=== PATIENT | male | born 1960 | race African-American/Black ===

== ENCOUNTER 2019-09-27 14:08 | Emergency (ER) | payer SELFPAY ==
[2019-09-27 15:36] VITALS: BP 149/89
--- NOTE | 2019-09-27 16:16 | RAD ---
Exam: CT head INDICATION: Headache TECHNIQUE: Sequential axial images through the head were obtained without the administration of IV contrast. Comparisons: None FINDINGS: No focal parenchymal lesion or hemorrhage is identified. There is no midline shift or sulcal effacement. No acute vascular territory infarction is identified. Wolf-white distinction is preserved. The ventricular system is within normal limits without compression hydrocephalus. The basal cisterns are well maintained. The visualized portions of the paranasal sinuses and mastoid air cells are well-pneumatized. No acute fractures. IMPRESSION: No acute intracranial abnormality. Exposure: One or more of the following in the visualized dose reduction techniques were utilized for this examination: 1. Automated exposure control 2. Adjustment of the MA and/or KV according to patient size Use of iterative of reconstructive technique Electronically signed by: Jennifer Villasenor MD (09/27/2019 4:13 PM) [facility]
--- NOTE | 2019-09-27 16:37 | PHYS DOC ---
Past Medical History Alcohol Use: Occasionally Adult General Chief Complaint Chief Complaint: EYE PROBLEMS HPI HPI Patient is a 58 year old male with no significant medical history who presents to the ED today complaining of redness on the right side of the right eye that began 3-4 days ago. Patient reports he has been under a lot of stress yelling and screaming multiple times to the significant other, after one of the screaming episodes he noted he raptured one of his blood vessels to the right eye. He reports occasional blurry vision which is not present right now. He reports mild intermittent right-sided headaches since the yelling and screaming began. Patient denies any previous history of high blood pressure. Denies any drainage. Denies any trauma Review of Systems Review of Systems Constitutional: Denies fever or chills [] Eyes: Reports redness to the right lateral eye. Denies change in visual acuity, eye pain [] HENT: Denies nasal congestion or sore throat [] Respiratory: Denies cough or shortness of breath [] Cardiovascular: No additional information not addressed in HPI [] GI: Denies abdominal pain, nausea, vomiting, bloody stools or diarrhea [] : Denies dysuria or hematuria [] Musculoskeletal: Denies back pain or joint pain [] Integument: Denies rash or skin lesions [] Neurologic: Denies headache, focal weakness or sensory changes [] All other systems were reviewed and found to be within normal limits, except as documented in this note. Allergies Allergies Allergies Coded Allergies Type Severity Reaction Last Updated Verified No Known Drug Allergies 09/27/19 No Physical Exam Physical Exam Constitutional: Well developed, well nourished, no acute distress, non-toxic appearance. [] HENT: Normocephalic, atraumatic, bilateral external ears normal, oropharynx m oist, no oral exudates, nose normal. [] Eyes: PERRLA, EOMI, subconjunctival hemorrhage noted on the right lateral eye, no discharge. [] Neck: Normal range of motion, no tenderness, supple, no stridor. [] Cardiovascular:Heart rate regular rhythm, no murmur [] Lungs & Thorax: Bilateral breath sounds clear to auscultation [] Abdomen: Bowel sounds normal, soft, no tenderness, no masses, no pulsatile rupal s. [] Skin: Warm, dry, no erythema, no rash. [] Back: No tenderness, no CVA tenderness. [] Extremities: No tenderness, no cyanosis, no clubbing, ROM intact, no edema. [] Neurologic: Alert and oriented X 3, normal motor function, normal sensory function, no focal deficits noted. Cranial nerves II-XII intact. Psychologic: Affect normal, judgement normal, mood normal. [] Current Patient Data Vital Signs Vital Signs Date Time Temp Pulse Resp B/P (MAP) Pulse Ox O2 Delivery O2 Flow Rate FiO2 09/27/19 15:36 99.0 71 16 149/89 (109) 97 Room Air 99.0 EKG EKG [] Radiology/Procedures Radiology/Procedures [] Course & Med Decision Making Course & Med Decision Making Pertinent Labs and Imaging studies reviewed. (See chart for details) This is a 58-year-old male patient with no significant medical history who presents to the ED today complaining of ruptured blood vessels on the right lateral eye that he noted 3 or 4 days ago after yelling/screaming much with the significant other. Also complaining of headache since then. Blood pressures in the 140s over 80s. CT of the head is negative. Visual acuity 20/30 right eye, left eye and both eyes. Discussed with patient stress management measures including the need to reduce his stress level. 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 Provided return precautions and discharged in stable condition. Dragon Disclaimer Dragon Disclaimer This electronic medical record was generated, in whole or in part, using a voice recognition dictation system. Departure Departure Impression: Primary Impression: Non-traumatic subconjunctival hemorrhage of right eye Additional Impressions: Stress High blood pressure Disposition: HOME, SELF-CARE Condition: STABLE Referrals: NO PCP (PCP) FRANCK WATKINS MD follow up in 1 week Patient Instructions: Hypertension, Stress, Subconjunctival Hemorrhage-Brief Additional Instructions: You were evaluated in the emergency room for subconjunctival hemorrhage/broken blood vessels in the right eye. This can occur during screaming/yelling/stressfu l events. Consider managing your stress better e.g getting help at [facility] for stress management. Your blood pressure was slightly up. Consider following up with a doctor from the list provided for blood pressure management. You can take Tylenol as needed for your headaches. Problem Qualifiers Additional Impressions: High blood pressure Hypertension type: unspecified Qualified Codes: I10 - Essential (primary) hypertension DEISY GOODEN APRN Sep 27, 2019 16:37
== END 2019-09-27 16:39 | disposition home or self-care (01) ==
LOC: ER 14:08
DX: H11.31 Conjunctival hemorrhage, right eye (principal); I10 Essential (primary) hypertension; F43.9 Reaction to severe stress, unspecified
CPT/HCPCS: 70450; 99284-25

== ENCOUNTER 2021-07-06 04:55 | Emergency (ER) | payer SELFPAY ==
[~2021-07-06] VITALS: Ht 175.3 cm; Wt 68.1 kg
--- NOTE | 2021-07-06 05:12 | PHYS DOC ---
Past Medical History Past Surgical History: No Surgical History (ROBBIE OLIVEIRA DO) Smoking Status: Current Every Day Smoker Alcohol Use: Occasionally (ROBBIE OLIVEIRA DO) General Adult EDM: Chief Complaint: WEAKNESS/GENERALIZED HPI: HPI: 60-year-old male patient with a history of hypertension presents the emergency department complaining of chest pain after he was found passed out sleeping in a gas station earlier tonight. The patient states the chest pain is in the middle of his chest, does not radiate, not associate with any shortness of breath or cough, he admits to some chills. Denies history of blood clots in the past. He does admit to having low potassium in the past. (ROBBIE OLIVEIRA DO) Review of Systems: Review of Systems: Constitutional: Negative except what was mentioned in HPI. Eyes: Negative except what was mentioned in HPI. HENT: Negative except what was mentioned in HPI. Respiratory: Negative except what was mentioned in HPI. Cardiovascular: Negative except what was mentioned in HPI. GI: Negative except what was mentioned in HPI. : Negative except what was mentioned in HPI. Musculoskeletal: Negative except what was mentioned in HPI. Integument: Negative except what was mentioned in HPI. Neurologic: Negative except what was mentioned in HPI. (ROBBIE OLIVEIRA DO) Heart Score: C/O Chest Pain: No HEART Score for Chest Pain: HEART Score for Chest Pain Response (Comments) Value History Slighlty/Non-Suspicious 0 ECG Normal 0 Age >45 - < 65 1 Risk Factors 1 or 2 Risk Factors 1 Total 2 (ROBBIE OLIVEIRA DO) Allergies: Allergies: Allergies Coded Allergies Type Severity Reaction Last Updated Verified No Known Drug Allergies 09/27/19 No (ROBBIE OLIVEIRA DO) Physical Exam: PE: Constitutional: No acute distress, non-toxic appearance. Odd behavior HENT: Atraumatic, bilateral external ears normal, nose normal. Eyes: Conjunctiva normal, no discharge. Neck: Normal range of motion, supple, no stridor. Cardiovascular: Heart rate regular rhythm. 2+ radial pulses and equal Lungs & Thorax: No respiratory distress, symmetrical expansion. Bilateral breath sounds clear to auscultation Chest wall: No reproducible chest wall tenderness to palpation, no lesions. Abdomen: Soft, no tenderness Skin: Warm, dry. Extremities: No tenderness, no cyanosis, ROM intact, no edema. Neurologic: Alert and oriented X 3, normal motor function, normal sensory function, no focal deficits noted. GCS 15. (ROBBIE OLIVEIRA DO) Current Patient Data: Vital Signs: Vital Signs Date Time Temp Pulse Resp B/P (MAP) Pulse Ox O2 Delivery O2 Flow Rate FiO2 07/06/21 05:00 98.0 62 18 184/114 (137) 97 Room Air 98.0 (ROBBIE OLIVEIRA DO) EKG: EKG: Time read: 0507 Normal sinus rhythm rate of 64, no ST-T wave changes, no ectopic beats, normal axis, normal [place], QRS, and QTc intervals. Impression: Normal EKG. interpreted by Robbie rosa D.O. (ROBBIE OLIVEIRA DO) Radiology/Procedures: Radiology/Procedures: IMAGING REPORT Signed PATIENT: BOBBY GARCIA ACCOUNT: [id number] : 1960 LOCATION: ER AGE: 60 SEX: M EXAM STATUS: REG ER ORD. PHYSICIAN: ROBBIE OLIVEIRA DO REASON: chset pain PROCEDURE: PORTABLE CHEST 1V EXAM: CHEST 1 VIEW History: Chest pain COMPARISON: None available. TECHNIQUE: Single portable radiograph of the chest FINDINGS: The cardiac silhouette is unremarkable. Mild bibasilar lung airspace opacities. The costophrenic sulci are clear and well demarcated. IMPRESSION: Mild bibasilar lung airspace opacities likely atelectasis or infiltrates. Electronically signed by: Juliocesar Villarreal MD (07/06/2021 6:50 AM) [id number] DICTATED and SIGNED BY: JULIOCESAR VILLARREAL MD DATE: 07/06/21 [id number] (LIBAN VARGAS DO) Course & Med Decision Making: Course & Med Decision Making patient with moderate risk for chest pain, will obtain delta troponin. patient appears stable clinically, ekg normal, patient resting comfortably. 0600: Transfer of care to Dr. Vargas at this time Patient's current medical course discussed in rounds and patient is currently updated with medical plan Pending 2nd set My Orders - ROBBIE OLIVEIRA DO Procedure Category Date Status Time Basic Metabolic Panel LAB 07/06/21 Logged 05:07 Cbc W Autodiff LAB 07/06/21 Logged 05:07 Ua, Cult If Indicated LAB 07/06/21 Logged 05:07 Drugs Of Abuse Ur LAB 07/06/21 Logged 05:07 Portable Chest 1v RAD 07/06/21 Logged 05:07 Nt-Pro Bnp LAB 07/06/21 Logged 05:07 Troponini LAB 07/06/21 Logged 05:07 Troponini LAB 07/06/21 Logged 08:07 Troponini LAB 07/06/21 Logged 11:07 Iv Ringers,Lactated PHA 07/06/21 In Process 1000ml (Iv Lactated 05:30 Ethanol LAB 07/06/21 Logged 05:12 (ROBBIE OLIVEIRA DO) Course & Med Decision Making This patient was initially seen by Dr. Oliveira. Please see his note for further details. The patient was observed in the ED for much of the morning. Serial troponin assay exams are performed, no indication of myocardial ischemia. The patient got up, ambulated and was given food and drink. His emergency department work-up is unremarkable for any acute life-threatening process. There is no current indication for further ED exams, imaging or for admission at this time. He denies any chest pain at present. He will be dismissed. He is encouraged to follow-up with a primary care physician. He ambulated out of the emergency department without difficulty. (LIBAN VARGAS DO) Departure Departure Impression: Primary Impression: Chest pain Qualified Codes: R07.9 - Chest pain, unspecified Disposition: HOME / SELF CARE / HOMELESS Condition: STABLE Referrals: NO PCP (PCP) Patient Instructions: Chest Pain (Nonspecific), [id number] Additional Instructions: You were seen in the emergency department for chest pain. Your exam and testing did not show any acute abnormality that warranted admission today but does not rule out underlying cardiovascular disease. You need to follow up with your primary doctor and/or cardiology for further evaluation. Return to the Emergency Department immediately, day or night, if you have worsening or continued chest pain, shortness of breath, nausea, sweating during chest pain, trouble breathing, chest pain with exertion (climbing stairs or walking for example), leg swelling or for any other concerns. ROBBIE OLIVEIRA DO Jul 06, 2021 05:12 LIBAN VARGAS DO Jul 06, 2021 06:56
[2021-07-06] MEDS ORDERED: IV RINGERS,LACTATED 1000ML 1,000 ML IV SCH (05:30)
[2021-07-06 06:40] LABS: BASO # 0.1 x10^3/uL (0.0-0.2); BASO % 1 % (0-3); EOS # 0.2 x10^3/uL (0.0-0.7); EOS % 2 % (0-3); HEMATOCRIT 32.6 % (39.0-53.0); HEMOGLOBIN 10.8 g/dL (13.0-17.5); LYMPH # 1.7 x10^3/uL (1.0-4.8); LYMPH % 18 % (24-48); MEAN CORPUSCULAR HEMOGLOBIN 32 pg (25-35); MEAN CORPUSCULAR HGB CONC 33 g/dL (31-37); MEAN CORPUSCULAR VOLUME 98 fL (79-100); MONO # 0.5 x10^3/uL (0.0-1.1); MONO % 6 % (0-9); NEUT % 74 % (31-73); PLATELET COUNT 354 x10^3/uL (140-400); RED BLOOD COUNT 3.34 x10^6/uL (4.30-5.70); RED CELL DISTRIBUTION WIDTH 13.8 % (11.5-14.5); WHITE BLOOD COUNT 9.5 x10^3/uL (4.0-11.0)
[2021-07-06 06:48] LABS: CALCIUM 8.5 mg/dL (8.5-10.1); CREATININE 1.9 mg/dL (0.7-1.3); GFR 43.8; POTASSIUM 3.1 mmol/L (3.5-5.1)
--- NOTE | 2021-07-06 06:52 | RAD ---
EXAM: CHEST 1 VIEW History: Chest pain COMPARISON: None available. TECHNIQUE: Single portable radiograph of the chest FINDINGS: The cardiac silhouette is unremarkable. Mild bibasilar lung airspace opacities. The costop hrenic sulci are clear and well demarcated. IMPRESSION: Mild bibasilar lung airspace opacities likely atelectasis or infiltrates. Electronically signed by: Juliocesar Villarreal MD (07/06/2021 6:50 AM) [id number]
[2021-07-06] MEDS ORDERED: POTASSIUM CHLORIDE 20 MEQ TABLET.ER. PO ONE (07:00)
[2021-07-06 07:29] LABS: BILIRUBIN,URINE NEGATIVE (NEG); CLARITY,URINE CLEAR; COLOR,URINE YELLOW; NITRITE,URINE NEGATIVE (NEG); PH,URINE 7.5 (<5.0-8.0); PROTEIN,URINE NEGATIVE (NEG-TRACE)
[2021-07-06 07:35] LABS: AMPHETAMINE/METHAMPHETAMINE NEG (NEG); BARBITURATES NEG (NEG); BENZODIAZEPINES NEG (NEG); CANNABINOIDS NEG (NEG); COCAINE POS (NEG); METHADONE NEG (NEG); OPIATES NEG (NEG); PHENCYCLIDINE NEG (NEG)
[2021-07-06 07:53] LABS: AMORPHOUS SEDIMENT,UR PRESENT /HPF; BACTERIA,URINE 0 /HPF (0-FEW); RBC,URINE OCC /HPF (0-2); WBC,URINE OCC /HPF (0-4)
[2021-07-06 12:43] VITALS: BP 160/98
--- NOTE | 2021-07-07 04:33 | EKG ---
[facility] [address] [place] [address] Test Date: 2021-07-06 Test Time: 05:07:43 Pat Name: BOBBY GARCIA Department: Room: Gender: M [employer]: : 1960 Requested By: LIBAN GROVER Order Number: [id number] Reading MD: Tu Atkins Measurements Intervals [place] Rate: 64 P: 90 OK: 140 QRS: 78 QRSD: 88 T: 69 QT: 478 QTc: 493 Interpretive Statements SINUS RHYTHM LEFT ATRIAL ABNORMALITY PROLONGED QT Electronically Signed On 07-08-2021 16:06:22 CDT by Tu Atkins
--- NOTE | 2021-07-07 09:57 | NUR ---
IP: Attempted to contact pt concerning covid results. Phone number provided is not his number. Tried other number listed, that number belongs to a friend who gave me another number of [phone]. No answer at that number bur left a voicemail to have pt call me.
== END 2021-07-06 12:43 | disposition home or self-care (01) ==
LOC: ER 04:55
DX: R07.89 Other chest pain (principal); Z20.822 Contact with and (suspected) exposure to COVID-19; I10 Essential (primary) hypertension; F17.200 Nicotine dependence, unspecified, uncomplicated
CPT/HCPCS: 36415; 71045; 80048; 80307; 81001; 83735; 83880; 84484; 85025; 87426; 93005; 99285; G0480; U0003; U0005